=== PATIENT | male | born 1990 | race Caucasian/White ===

== ENCOUNTER 2017-05-20 17:33 | Emergency (ER) | payer OTHER ==
[2017-05-20 17:37] VITALS: BP 165/113; PULSE 100; TEMP 98.7; BMI 35.4
--- NOTE | 2017-05-20 18:09 | PDOC ---
History of Present Illness - General Chief Complaint: Cold Symptoms Stated Complaint: COUGHNG Time Seen by Provider: 05/20/17 17:45 History Source: Patient Exam Limitations: No Limitations - History of Present Illness Initial Comments: 05/20/17 18:04 26 year old male with history of diet controlled htn, presents with dry cough x 1 week. Reports recent travel to [facility] with coughing not getting better. Reports forceful coughing causing pain in back. Denies fever, chills, body ache, earach or other cold symptoms. Timing/Duration: reports: intermittent Severity: reports: mild Possible Cause: Yes: no prior episodes Modifying Factors: improves with: coughing Associated Symptoms: denies: earache, headache, muscle aches, sinus infection, sore throat Aspirin Received prior to arrival: Yes: no aspirin today Beta Sandra Contraindications(Core Measure): Yes: Not Prescribed Beta Sandra Given by EMS(Core Measure): No Beta Sandra Taken at Home(Core Measure): No Beta Sandra Not Indicated at this Time(Core Measure): No Past History - Past Medical History Allergies/Adverse Reactions: Allergies Allergy/AdvReac Type Severity Reaction Status Date / Time No Known Allergies Allergy Verified 05/20/17 17:37 Home Medications: Ambulatory Orders Azithromycin 500 mg PO DAILY #3 tablet 05/20/17 Benzonatate [Tessalon Pearls -] 100 mg PO TID #9 capsule 05/20/17 COPD: No Other medical history: NONE - Suicide/Smoking/Psychosocial Hx Smoking History: Current some day smoker Number of Cigarettes Smoked Daily: 2 Information on smoking cessation initiated: No Hx Alcohol Use: Yes (SOCIAL) Drug/Substance Use Hx: No Substance Use Type: None Respiratory Specific PMHX - Complaint Specific PMHX Angina: No Bronchitis: No Pneumonia: No Pulmonary Embolus: No TB (Tuberculosis): No Review of Systems - Review of Systems Able to Perform ROS?: Yes Is the patient limited Cypriot proficient: No Constitutional: No: Chills, Fever, Night Sweats, Weakness, Weight Stable, Other HEENTM: No: Cataracts, Ocular Prothesis, Nose Congestion, Tinnitus, Nose Bleeding, Throat Swelling, Difficulty Swallowing, Other Respiratory: Yes: Cough. No: Orthopnea, Shortness of Breath, SOB at Rest, Wheezing Cardiac (ROS): No: Chest Pain, Lightheadedness, Palpitations ABD/GI: No: Abdominal Distended Musculoskeletal: Yes: Back Pain Neurological: No: Headache, Numbness, Tingling, Tremors, Dizziness *Physical Exam - Vital Signs Last Vital Signs Temp Pulse Resp BP Pulse Ox 98.7 F 100 H 20 165/113 98 05/20/17 17:34 05/20/17 17:34 05/20/17 17:34 05/20/17 17:34 05/20/17 17:34 - Physical Exam General Appearance: Yes: Nourished, Appropriately Dressed. No: Apparent Distress HEENT: positive: EOMI, MARYANA, Pharynx Normal, TM Dull (right tm no cone of light) Neck: positive: Supple. negative: Lymphadenopathy (R), Lymphadenopathy (L) Respiratory/Chest: positive: Lungs Clear, Normal Breath Sounds. negative: Respiratory Distress, Accessory Muscle Use Cardiovascular: positive: Regular Rhythm, Regular Rate, S1, S2 Musculoskeletal: negative: CVA Tenderness (R), CVA Tenderness (L) Neurologic: positive: revenue specialist II-XII NML intact, Fully Oriented, Alert Medical Decision Making - Medical Decision Making 05/20/17 18:06 26 year old male with non productive coughing causing pain in back with coughing. Denies fever or chills Rx: neri snider continue with mucinex 05/20/17 18:10 *DC/Admit/Observation/Transfer Diagnosis at time of Disposition: Coughing - Discharge Dispostion Disposition: HOME Condition at time of disposition: Good Admit: No - Prescriptions Prescriptions: Azithromycin 500 mg PO DAILY #3 tablet Benzonatate [Tessalon Pearls -] 100 mg PO TID #9 capsule - Referrals Referrals: Mando Rush MD [Primary Care Provider] - - Patient Instructions Printed Discharge Instructions: How to Avoid a Cold or Flu, DI for Viral Upper Respiratory Infection -- Adult Additional Instructions: *Drink plenty fluids *take medication as prescribed *call primary physician for follow up appointment - Post Discharge Activity Forms/Work/School Notes: Back to Work
== END 2017-05-20 18:12 | disposition home or self-care (01) ==
LOC: JERFT 17:33
DX: R05 Cough (principal)
CPT/HCPCS: 99281-25

== ENCOUNTER 2017-11-01 01:21 | Emergency (ER) | payer OTHER ==
--- NOTE | 2017-11-01 03:10 | PDOC ---
History of Present Illness - General Stated Complaint: ABD PAIN, DIARRHEA Time Seen by Provider: 11/01/17 02:31 History Source: Patient Exam Limitations: No Limitations - History of Present Illness Initial Comments: CHIEF COMPLAINT: 26 y/o afebrile male with lower abdominal cramping and diarrhea since yesterday. HISTORY OF PRESENT ILLNESS: Patient returned from [place] this morning. He thinks he has travelers diarrhea. He denies fever, nausea, vomiting. Vital signs on arrival are within normal limits. REVIEW OF SYSTEMS: GENERAL/CONSTITUTIONAL: No fever/chills. No weakness. No weight change. GASTROINTESTINAL: +abd cramping and diarrhea. No vomiting. SKIN: No rash or easy bruising. NEUROLOGIC: No headache, vertigo, loss of consciousness, or loss of sensation. PHYSICAL EXAM: GENERAL: The patient is awake, alert, and fully oriented, in no acute distress. ABDOMEN: Soft, non-distended, non-tender even to deep palpation, no hepatomegaly or splenomegaly, no masses. NEUROLOGICAL: Normal speech, normal gait. CN II-XII grossly intact. SKIN: Warm, dry, normal turgor, no rashes or lesions noted. Past History - Past Medical History Allergies/Adverse Reactions: Allergies Allergy/AdvReac Type Severity Reaction Status Date / Time No Known Allergies Allergy Verified 05/20/17 17:37 Home Medications: Ambulatory Orders Azithromycin 500 mg PO DAILY #3 tablet 05/20/17 Benzonatate [Tessalon Pearls -] 100 mg PO TID #9 capsule 05/20/17 Ciprofloxacin [Cipro -] 500 mg PO Q12H #6 tablet 11/01/17 COPD: No - Suicide/Smoking/Psychosocial Hx Smoking History: Current some day smoker Number of Cigarettes Smoked Daily: 2 Hx Alcohol Use: Yes (SOCIAL) Drug/Substance Use Hx: No Substance Use Type: None Medical Decision Making - Medical Decision Making A/P: 26 y/o male with traveler's diarrhea. Will send rx for 3 day course of cipro. Instructed him to stay well hydrated and return to the ER with any worsening or concerning symptoms. The patient verbalizes understanding of all instructions, has no further questions and is awaiting discharge. *DC/Admit/Observation/Transfer Diagnosis at time of Disposition: Traveler's diarrhea - Discharge Dispostion Disposition: HOME Condition at time of disposition: Good - Referrals - Patient Instructions Printed Discharge Instructions: DI for Diarrhea and Traveler's Diarrhea -- Adult Additional Instructions: Discharge Instructions: -You have travelers diarrhea. -A prescription for antibiotics has been sent to your pharmacy -Stay well hydrated -Return to the ER with any worsening or concerning symptoms - Post Discharge Activity
--- NOTE | 2017-11-01 03:11 | PDOC ---
Medical Decision Making - Medical Decision Making 11/01/17 03:11 agree with care from ISAURA Christina *DC/Admit/Observation/Transfer Diagnosis at time of Disposition: Traveler's diarrhea - Discharge Dispostion Disposition: HOME Condition at time of disposition: Good - Prescriptions Prescriptions: Ciprofloxacin [Cipro -] 500 mg PO Q12H #6 tablet - Referrals - Patient Instructions Printed Discharge Instructions: DI for Diarrhea and Traveler's Diarrhea -- Adult Additional Instructions: Discharge Instructions: -You have travelers diarrhea. -A prescription for antibiotics has been sent to your pharmacy -Stay well hydrated -Return to the ER with any worsening or concerning symptoms - Post Discharge Activity
[2017-11-01 03:12] VITALS: BP 139/98; PULSE 88; TEMP 98.4; BMI 34.5
== END 2017-11-01 03:33 | disposition home or self-care (01) ==
LOC: JER 01:21
DX: A08.8 Other specified intestinal infections (principal); F17.210 Nicotine dependence, cigarettes, uncomplicated
CPT/HCPCS: 99282-25

== ENCOUNTER 2018-12-29 21:38 | Emergency (ER) | payer OTHER ==
[2018-12-29 21:46] VITALS: TEMP 98; BMI 37.2
--- NOTE | 2018-12-29 22:12 | PDOC ---
History of Present Illness - General Chief Complaint: Cold Symptoms Stated Complaint: COUGH History Source: Patient Exam Limitations: No Limitations - History of Present Illness Initial Comments: 12/29/18 22:09 Patient is a 28 year old male with h/o seasonal allergies c/o cough x 3-4 weeks. States cough is nonproductive of sputum and now is having a sore throat , due to the coughing. At night the throat get dry and he wakes up coughing. States 2 days ago had subjective fever, and diarrhea, body ache. He has taken TheraFlu within the last 24 hours. PMHX: as above PSOCHX 3-4 cig/week, occ etoh, neg drug ALL: NKDA GENERAL/CONSTITUTIONAL: No fever or chills. No weakness. No weight change. HEAD, EYES, EARS, NOSE AND THROAT: No change in vision. No ear pain or discharge. No sore throat. CARDIOVASCULAR: No chest pain or shortness of breath. RESPIRATORY: (+) cough, (-) wheezing, or hemoptysis. GASTROINTESTINAL: No nausea, vomiting, diarrhea or constipation. No rectal bleeding. GENITOURINARY: No dysuria, frequency, or change in urination. MUSCULOSKELETAL: No joint or muscle swelling or pain. No neck or back pain. SKIN AND BREASTS: No rash or easy bruising. NEUROLOGIC: No headache, vertigo, loss of consciousness, or loss of sensation. PSYCHIATRIC: No depression or anxiety. ENDOCRINE: No increased thirst. No abnormal weight change. HEMATOLOGIC/LYMPHATIC: No anemia, easy bleeding, or history of blood clots. ALLERGIC/IMMUNOLOGIC: No hives or skin allergy. No latex allergy. GENERAL: The patient is awake, alert, and fully oriented, in no acute distress, occasionally with dry cough. HEAD: Normal with no signs of trauma. EYES: Pupils equal, round and reactive to light, extraocular movements intact, sclera anicteric, conjunctiva clear. ENT: Ears normal, nares patent, oropharynx clear without exudates. Moist mucous membranes. NECK: Normal range of motion, supple without lymphadenopathy, JVD, or masses. LUNGS: Breath sounds equal, clear to auscultation bilaterally. No wheezes, and no crackles. HEART: Regular rate and rhythm, normal S1 and S2 without murmur, rub. ABDOMEN: Soft, nontender, normoactive bowel sounds. No guarding, no rebound. No masses. EXTREMITIES: Normal range of motion, no edema. No clubbing or cyanosis. No cords, erythema, or tenderness. NEUROLOGICAL: Cranial nerves II through XII grossly intact. Normal speech, normal gait. PSYCH: Normal mood, normal affect. SKIN: Warm, Dry, normal turgor, no rashes or lesions noted. Past History - Past Medical History Allergies/Adverse Reactions: Allergies Allergy/AdvReac Type Severity Reaction Status Date / Time No Known Allergies Allergy Verified 11/01/17 03:12 Home Medications: Ambulatory Orders Amlodipine Besylate [Norvasc -] 2.5 mg PO DAILY 11/01/17 Albuterol Sulfate Inhaler - [Ventolin HFA Inhaler -] 2 inh PO Q4H #1 inh Benzonatate [Tessalon Pearls -] 100 mg PO TID #21 capsule 12/29/18 COPD: No HTN: Yes - Immunization History Immunization Up to Date: Yes - Suicide/Smoking/Psychosocial Hx Smoking History: Never smoked Have you smoked in the past 12 months: No Number of Cigarettes Smoked Daily: 2 Hx Alcohol Use: Yes (1x/week) Drug/Substance Use Hx: No Substance Use Type: None Respiratory Specific PMHX - Complaint Specific PMHX Angina: No Bronchitis: No Pneumonia: No Pulmonary Embolus: No TB (Tuberculosis): No *Physical Exam - Vital Signs Last Vital Signs Temp Pulse Resp BP Pulse Ox 98 F 112 H 20 161/111 H 98 12/29/18 21:43 12/29/18 21:43 12/29/18 21:43 12/29/18 21:43 12/29/18 21:43 Medical Decision Making - Medical Decision Making 12/29/18 22:09 Patient is a 28 year old male with h/o seasonal allergies c/o cough x 3-4 weeks. States cough is nonproductive of sputum and now is having a sore throat , due to the coughing. At night the throat get dry and he wakes up coughing. States 2 days ago had subjective fever, and diarrhea, body ache. He has taken TheraFlu within the last 24 hours. Symptoms consistent with seasonal allergies. will give Claritin and duo neb treatment cxr r/o pneumonia Chest x-ray shows no acute infiltrates Patient noted to have elevated blood pressure. Patient has not taken his blood pressure medication in a while. Will give Norvasc 5 mg by mouth now repeat blood pressure. Selected Entries 12/30/18 01:00 Pulse Rate [ 100 H Left Radial] Respiratory 20 Rate Blood Pressure 163/112 H [Left Arm] O2 Sat by Pulse 98 Oximetry (%) I discussed the physical exam findings, ancillary test results and final diagnoses with the patient. I answered all of the patient's questions. The patient was satisfied with the care received and felt comfortable with the discharge plan and treatment plan. The Patient agrees to follow up with the primary care physician within 24-72 hours. Patient advised to follow-up with his mobile heavy equipment mechanic for further management of the blood pressure. *DC/Admit/Observation/Transfer Diagnosis at time of Disposition: Seasonal allergies, Cough - Discharge Dispostion Disposition: HOME Condition at time of disposition: Stable - Prescriptions Prescriptions: Albuterol Sulfate Inhaler - [Ventolin HFA Inhaler -] 2 inh PO Q4H #1 inh Benzonatate [Tessalon Pearls -] 100 mg PO TID #21 capsule - Referrals - Patient Instructions Printed Discharge Instructions: DI for Cough -- Adult - Post Discharge Activity
[2018-12-29] MEDS ORDERED: LORATADINE 10 MG TABLET PO ONE (22:20)
[2018-12-29] MEDS ORDERED: ALBUTEROL SO4 2.5/IPRATROPIUM 0.5 INH SOL 3 ML VIAL.NEB. NEB ONE ×2 (22:22→22:49)
[2018-12-29] MEDS ORDERED: LORATADINE 10 MG TABLET ONE (22:50)
[2018-12-29] MEDS ORDERED: DEXAMETHASONE 4 MG TABLET (FP) PO ONE (23:35)
[2018-12-29] MEDS ORDERED: DEXAMETHASONE LIQUID 0.5 MG/5 ML 240 ML BULK BOTTLE PO ONE (23:50)
[2018-12-29] MEDS ORDERED: DEXAMETHASONE SOD PHOSPHATE 10 MG/1 ML VIAL ONE (23:52)
[2018-12-30] MEDS ORDERED: amLODIPine BESYLATE 5 MG TABLET (FP) PO ONE (00:19)
[2018-12-30] MEDS ORDERED: amLODIPine BESYLATE 5 MG TABLET (FP) ONE (00:23)
--- NOTE | 2018-12-30 00:38 | PDOC ---
*Physical Exam - Vital Signs Last Vital Signs Temp Pulse Resp BP Pulse Ox 98 F 108 H 20 202/136 H 96 12/29/18 21:43 12/30/18 00:05 12/30/18 00:05 12/30/18 00:05 12/30/18 00:05 ED Treatment Course - Medications Given in the ED: ED Medications Discontinued Medications Generic Name Dose Route Start Last Admin Trade Name Radha PRN Reason Stop Dose Admin Albuterol/Ipratropium 1 amp 12/29/18 22:22 12/29/18 22:55 Duoneb - NEB 12/29/18 22:23 1 amp ONCE ONE Administration Amlodipine Besylate 5 mg 12/30/18 00:19 12/30/18 00:26 Norvasc - PO 12/30/18 00:20 5 mg ONCE ONE Administration Dexamethasone 10 mg 12/29/18 23:35 12/30/18 00:05 Decadron - PO 12/29/18 23:36 Not Given ONCE ONE Dexamethasone 10 mg 12/29/18 23:50 12/30/18 00:04 Decadron Liquid - PO 12/29/18 23:51 10 mg ONCE ONE Administration Loratadine 10 mg 12/29/18 22:20 12/29/18 22:55 Claritin - PO 12/29/18 22:21 10 mg ONCE ONE Administration Medical Decision Making - Medical Decision Making 12/30/18 00:38 Pt seen by Midlevel Provider under my direct supervision I agree with plan as outlined by Midlevel Provider *DC/Admit/Observation/Transfer Diagnosis at time of Disposition: Seasonal allergies, Cough - Discharge Dispostion Disposition: HOME Condition at time of disposition: Stable - Prescriptions Prescriptions: Albuterol Sulfate Inhaler - [Ventolin HFA Inhaler -] 2 inh PO Q4H #1 inh Benzonatate [Tessalon Pearls -] 100 mg PO TID #21 capsule - Referrals - Patient Instructions Printed Discharge Instructions: DI for Cough -- Adult - Post Discharge Activity
[2018-12-30 01:01] VITALS: BP 163/112; PULSE 100
== END 2018-12-30 01:02 | disposition home or self-care (01) ==
LOC: JER 21:38
PROC: 3E0F7GC Introduction of Other Therapeutic Substance into Respiratory Tract, Via Natural or Artificial Opening (ICD-10-PCS; principal; 2018-12-29)
DX: J30.2 Other seasonal allergic rhinitis (principal); I10 Essential (primary) hypertension
CPT/HCPCS: 71046-TC-FY; 99282-25